=== PATIENT | female | born 1990 | race Caucasian/White ===

== ENCOUNTER 2017-04-18 21:03 | Emergency (ER) | payer BC, MEDICAID ==
[~2017-04-18] VITALS: Ht 167.6 cm; Wt 93.0 kg
[2017-04-18 21:25] VITALS: BP_SYST 110
--- NOTE | 2017-04-18 23:18 | NUR ---
Placed in room 02 . Placed on group home counselor, blood pressure machine and pulse oximeter. To gown for exam. Side rails up. Report given to JC Casas.
--- NOTE | 2017-04-18 23:18 | NUR ---
Patient AAO x4, sitting in bed, c/o left second toe pain 4/10 on movement, states she thinks she "dislocated" her toe while she was "rough-housing " with her daughter in the pool today. No bruising noted to toe. Skin pink and perfused. No acute distress noted. Will continue to monitor.
--- NOTE | 2017-04-18 23:26 | NUR ---
FRANTZ Virk at bedside examining patient.
[2017-04-18 23:38] VITALS: BP_SYST 112
--- NOTE | 2017-04-18 23:38 | NUR ---
Patient given written and verbal discharge instructions and verbalizes understanding. ER MD discussed with patient the results and treatment provided. Patient in stable condition. ID arm band removed. No Rx given. Patient educated on pain management and to follow up with PMD. Pain Scale 2/10 tolerable by patient . Opportunity for questions provided and answered.
== END 2017-04-18 23:38 | disposition home or self-care (01) ==
LOC: SED 21:03
DX: S92.332A Displaced fracture of third metatarsal bone, left foot, initial encounter for closed fracture (principal); J45.909 Unspecified asthma, uncomplicated; W51.XXXA Accidental striking against or bumped into by another person, initial encounter; Y93.11 Activity, swimming; Y92.34 Swimming pool (public) as the place of occurrence of the external cause; Y99.8 Other external cause status
CPT/HCPCS: 99284